=== PATIENT | male | born 1985 | race African-American/Black ===

== ENCOUNTER 2016-07-05 17:36 | Emergency (ER) | payer SELFPAY ==
[~2016-07-05] VITALS: Ht 172.7 cm; Wt 82.6 kg
[2016-07-05 18:02] VITALS: BP 142/76
[2016-07-05] MEDS ORDERED: ONDA4TAB10 SL ×2 (18:30→18:36)
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
--- NOTE | 2016-07-06 11:37 | EKG ---
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
== END 2016-07-05 19:02 | disposition home or self-care (01) ==
LOC: ER 17:36
DX: R55 Syncope and collapse (principal); R11.0 Nausea; R42 Dizziness and giddiness; F17.200 Nicotine dependence, unspecified, uncomplicated
CPT/HCPCS: 93005; 99284-25

== ENCOUNTER 2019-04-20 23:00 | Emergency (ER) | payer OTHER ==
[~2019-04-20] VITALS: Ht 172.7 cm; Wt 86.2 kg
[~2019-04-20 23:00] MED LIST: ONDA4TAB10 SL
[2019-04-21] MEDS ORDERED: IBUP-1007 PO (00:48)
[2019-04-21] MEDS ORDERED: ORPH100T PO (00:48)
[2019-04-21] MEDS ORDERED: METH4TAB2 PO (00:48)
[2019-04-21] MEDS ORDERED: HYDR-3164 PO (00:48)
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
[2019-04-21] MEDS ORDERED: HYDROcodone/APAP 5/325MG 1 TAB TABLET PO ONE (01:00)
[2019-04-21] MEDS ORDERED: ORPHENADRINE CITRATE 60 MG/2 ML VIAL. IM ONE (01:00)
== END 2019-04-21 01:20 | disposition home or self-care (01) ==
LOC: ER 23:00
DX: M54.41 Lumbago with sciatica, right side (principal); M54.42 Lumbago with sciatica, left side
CPT/HCPCS: 96372; 99283; J2360

== ENCOUNTER 2020-08-15 21:31 | Emergency (ER) | payer SELFPAY ==
[~2020-08-15] VITALS: Ht 172.7 cm; Wt 95.4 kg
[~2020-08-15 21:31] MED LIST changes: +HYDR-3164 PO; +IBUP-1007 PO; +METH4TAB2 PO; +ORPH100T PO
[2020-08-15 23:15] VITALS: BP 119/80
[2020-08-15 23:58] LABS: BILIRUBIN,URINE NEGATIVE (NEG); CLARITY,URINE CLEAR; COLOR,URINE YELLOW; NITRITE,URINE NEGATIVE (NEG); PROTEIN,URINE NEGATIVE (NEG-TRACE); UROBILINOGEN,URINE 0.2 mg/dL (0.2 mg/dL)
[2020-08-16 00:13] LABS: BACTERIA,URINE 0 /HPF (0-FEW); RBC,URINE 0 /HPF (0-2); WBC,URINE 0 /HPF (0-4)
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
[2020-08-16] MEDS ORDERED: IBUPROFEN 400 MG TABLET. PO ONE (00:30)
== END 2020-08-16 00:31 | disposition home or self-care (01) ==
LOC: ER 21:31
DX: K64.8 Other hemorrhoids (principal)
CPT/HCPCS: 81001; 99283